=== PATIENT | female | born 1945 | race Hispanic/Latino ===

== ENCOUNTER 2019-07-10 18:07 | Emergency (ER) | payer MEDICARE ==
[2019-07-10 22:17] LABS: Basophils # (Auto) 0.1 K/mm3 (0.0-0.1); Basophils % (Auto) 0.6 % (0.0-1.8); Hemoglobin 14.5 gm/dl (10.1-14.3); Lymphocytes # (Auto) 0.6 K/mm3 (1.2-5.4); Lymphocytes % (Auto) 5.6 % (13.4-35.0); Mean Corpuscular HGB Conc 33 % (30-34); Mean Corpuscular Volume 91 fl (79-97); Monocytes # (Auto) 0.8 K/mm3 (0.0-0.8); Monocytes % (Auto) 7.7 % (0.0-7.3); Platelet Count 206 K/mm3 (140-440); Red Blood Count 4.82 M/mm3 (3.65-5.03); Red Cell Distribution Width 15.1 % (13.2-15.2)
[2019-07-10 22:40] LABS: Calcium 9.6 mg/dL (8.4-10.2)
--- NOTE | 2019-07-10 23:09 | Emergency Department Report ---
ED General Adult HPI - General Chief complaint: Fall Stated complaint: FELL Time Seen by Provider: 07/10/19 20:34 Source: patient, family Mode of arrival: Stretcher Limitations: Physical Limitation - History of Present Illness Initial comments: Patient presents to the emergency department with a chief complaint of fall 2 this morning. Patient states she is uses a wheelchair to get around her home and upon transferring from the wheelchair to the toilet she fell and denies hitting her head or any loss of consciousness. Patient complains of bilateral knee and upper arm pain. Patient has had a decreased appetite 3 days per her niece. Patient denies chest pain, shortness breath, abdominal pain. -: Sudden Location: upper extremity, lower extremity Severity scale (0 -10): 4 Quality: aching Consistency: constant Improves with: none Worsens with: none Associated Symptoms: denies other symptoms Treatments Prior to Arrival: none - Related Data Previous Rx's Medication Instructions Recorded Last Taken Type levoFLOXacin [Levaquin] 750 mg PO QDAY #5 tablet 07/11/19 Unknown Rx Allergies Allergy/AdvReac Type Severity Reaction Status Date / Time potassium chloride AdvReac Rash Verified 06/16/15 11:15 [From [facility]] ED Review of Systems ROS: Stated complaint: FELL Other details as noted in HPI Comment: All other systems reviewed and negative Constitutional: denies: chills, fever Eyes: denies: eye pain, eye discharge, vision change ENT: denies: ear pain, throat pain Respiratory: denies: cough, shortness of breath, wheezing Cardiovascular: denies: chest pain, palpitations Endocrine: no symptoms reported Gastrointestinal: denies: abdominal pain, nausea, diarrhea Genitourinary: denies: urgency, dysuria, discharge Musculoskeletal: denies: back pain, joint swelling, arthralgia Skin: denies: rash, lesions Neurological: denies: headache, weakness, paresthesias Psychiatric: denies: anxiety, depression Hematological/Lymphatic: denies: easy bleeding, easy bruising ED Past Medical Hx - Past Medical History Hx Diabetes: Yes Hx COPD: Yes - Surgical History Additional Surgical History: patrial hysterectomy - Social History Smoking Status: Never Smoker Substance Use Type: None - Medications Home Medications: Home Medications Medication Instructions Recorded Confirmed Last Taken Type levoFLOXacin [Levaquin] 750 mg PO QDAY #5 tablet 07/11/19 Unknown Rx ED Physical Exam - General Limitations: Physical Limitation General appearance: alert, in no apparent distress - Head Head exam: Present: atraumatic, normocephalic - Eye Eye exam: Present: normal appearance, PERRL, EOMI - ENT ENT exam: Present: mucous membranes moist - Neck Neck exam: Present: normal inspection - Respiratory Respiratory exam: Present: normal lung sounds bilaterally. Absent: respiratory distress - Cardiovascular Cardiovascular Exam: Present: regular rate, normal rhythm. Absent: systolic murmur, diastolic murmur, rubs, gallop - GI/Abdominal GI/Abdominal exam: Present: soft, normal bowel sounds. Absent: distended, tenderness - Extremities Exam Extremities exam: Present: normal inspection, other (tenderness to palpation of bilateral humerus is as well as tenderness to palpation of the patellas bilaterally) - Back Exam Back exam: Present: normal inspection - Neurological Exam Neurological exam: Present: alert, oriented X3, CN II-XII intact. Absent: motor sensory deficit - Psychiatric Psychiatric exam: Present: normal affect, normal mood - Skin Skin exam: Present: warm, dry, intact, normal color. Absent: rash ED Course Vital Signs 07/10/19 07/10/19 07/10/19 18:39 21:11 21:15 Temperature 100.0 F H Pulse Rate 86 87 83 Respiratory 22 19 21 Rate Blood Pressure 157/53 166/117 O2 Sat by Pulse 90 93 93 Oximetry 07/10/19 07/10/19 07/10/19 21:31 21:45 22:01 Temperature Pulse Rate 79 77 80 Respiratory 18 19 20 Rate Blood Pressure 152/83 152/83 159/61 O2 Sat by Pulse 91 90 93 Oximetry 07/10/19 07/10/19 07/10/19 22:09 22:57 23:00 Temperature Pulse Rate 86 82 Respiratory 18 15 18 Rate Blood Pressure 159/61 159/64 O2 Sat by Pulse 93 92 Oximetry 07/10/19 07/11/19 07/11/19 23:31 00:01 00:30 Temperature Pulse Rate 84 Respiratory 20 Rate Blood Pressure 156/58 177/65 177/65 O2 Sat by Pulse 89 91 Oximetry 07/11/19 07/11/19 07/11/19 01:01 01:31 02:01 Temperature Pulse Rate 81 81 75 Respiratory 22 20 20 Rate Blood Pressure 164/60 160/54 154/55 O2 Sat by Pulse 89 93 90 Oximetry ED Medical Decision Making - Lab Data Result diagrams: 07/10/19 21:49 07/10/19 21:49 Lab Results 07/10/19 07/10/19 07/10/19 Range/Units 21:49 21:49 Unknown WBC 10.3 (4.5-11.0) K/mm3 RBC 4.82 (3.65-5.03) M/mm3 Hgb 14.5 H (10.1-14.3) gm/dl Hct 44.0 H (30.3-42.9) % MCV 91 (79-97) fl MCH 30 (28-32) pg MCHC 33 (30-34) % RDW 15.1 (13.2-15.2) % Plt Count 206 (140-440) K/mm3 Lymph % (Auto) 5.6 L (13.4-35.0) % [place] % (Auto) 7.7 H (0.0-7.3) % Eos % (Auto) 0.0 (0.0-4.3) % Baso % (Auto) 0.6 (0.0-1.8) % Lymph # 0.6 L (1.2-5.4) K/mm3 [place] # 0.8 (0.0-0.8) K/mm3 Eos # 0.0 (0.0-0.4) K/mm3 Baso # 0.1 (0.0-0.1) K/mm3 Seg Neutrophils % 86.1 H (40.0-70.0) % Seg Neutrophils # 8.9 H (1.8-7.7) K/mm3 Sodium 133 L (137-145) mmol/L Potassium 5.1 H (3.6-5.0) mmol/L Chloride 93.9 L (98-107) mmol/L Carbon Dioxide 21 L (22-30) mmol/L Anion Gap 23 mmol/L BUN 30 H (7-17) mg/dL Creatinine 1.7 H (0.7-1.2) mg/dL Estimated GFR 29 ml/min BUN/Creatinine Ratio 18 % Glucose 423 H (65-100) mg/dL Calcium 9.6 (8.4-10.2) mg/dL Total Bilirubin 0.70 (0.1-1.2) mg/dL AST 19 (5-40) units/L ALT 13 (7-56) units/L Alkaline Phosphatase 86 (35-129) units/L Total Protein 7.9 (6.3-8.2) g/dL Albumin 3.0 L (3.9-5) g/dL Albumin/Globulin Ratio 0.6 % Urine Color Yellow (Yellow) Urine Turbidity Turbid (Clear) Urine pH 5.0 (5.0-7.0) Ur Specific [place] 1.015 (1.003-1.030) Urine Protein 100 mg/dl (Negative) mg/dL Urine Glucose (UA) >=500 (Negative) mg/dL Urine Ketones Tr (Negative) mg/dL Urine Blood Mod (Negative) Urine Nitrite Neg (Negative) Urine Bilirubin Neg (Negative) Urine Urobilinogen < 2.0 (<2.0) mg/dL Ur Leukocyte Esterase Mod (Negative) Urine WBC (Auto) > 182.0 H (0.0-6.0) /HPF Urine RBC (Auto) 126.0 (0.0-6.0) /HPF Urine Bacteria (Auto) 4+ (Negative) /HPF Urine WBC Clumps 3+ /HPF Urine Mucus 2+ /HPF - Radiology Data Radiology results: report reviewed - Medical Decision Making X-ray results reviewed Laboratory values and urinalysis reviewed Patient given by mouth Clau Discussed plan of care results with the patient and her niece Critical care attestation.: If time is entered above; I have spent that time in minutes in the direct care of this critically ill patient, excluding procedure time. ED Disposition Clinical Impression: UTI (urinary tract infection), Weakness Disposition: TO HOME OR SELFCARE Is pt being admited?: No Does the pt Need Aspirin: No Condition: Stable Instructions: Urinary Tract Infection in Women (ED), Weakness (ED) Additional Instructions: return if worse Referrals: PRIMARY CAREMD [Primary Care Provider] - 3-5 Days KAINNA STUART MD [Staff Physician] - 3-5 Days Time of Disposition: 02:07
--- NOTE | 2019-07-10 23:15 | XRay Report ---
AP PELVIS INDICATION / CLINICAL INFORMATION: Multiple falls today with pelvic pain. COMPARISON: None available. FINDINGS: BONES / JOINT(S): No acute fracture or subluxation. There is moderate lower lumbar spondylosis. SOFT TISSUES: No significant abnormality. ADDITIONAL FINDINGS: None. IMPRESSION: No acute abnormality. Signer Name: Farooq Yarbrough MD Signed: 07/10/2019 11:11 PM Workstation Name: [email or web address] [email or web address]
--- NOTE | 2019-07-10 23:16 | XRay Report ---
BILATERAL HUMERI 4 VIEWS INDICATION / CLINICAL INFORMATION: Multiple falls today with bilateral arm pain. COMPARISON: None available. FINDINGS: BONES / JOINT(S): No acute fracture or subluxation. There are moderate degenerative changes involving both glenohumeral joints. SOFT TISSUES: No significant abnormality. ADDITIONAL FINDINGS: None. IMPRESSION: No acute abnormality. Signer Name: Farooq Yarbrough MD Signed: 07/10/2019 11:12 PM Workstation Name: [id number]
--- NOTE | 2019-07-10 23:17 | XRay Report ---
BILATERAL KNEES 4 VIEWS INDICATION / CLINICAL INFORMATION: Multiple falls today with bilateral knee pain. COMPARISON: None available. FINDINGS: BONES / JOINT(S): There are advanced degenerative changes involving the left knee, most prominent inv olving the medial tibiofemoral joint. There are moderate degenerative changes involving the right kne e. I see no evidence of fracture, dislocation or joint effusion. SOFT TISSUES: No significant abnormality. ADDITIONAL FINDINGS: None. IMPRESSION: No acute abnormality. Signer Name: Farooq Yarbrough MD Signed: 07/10/2019 11:13 PM Workstation Name: [id number]
[2019-07-11 02:01] LABS: Bacteria,Urine 4+ /HPF (Negative); Bilirubin,Urine NEG (Negative); Blood,Urine MOD (Negative); Color,Urine Yellow (Yellow); Mucus,Urine 2+ /HPF; Urobilinogen,Urine < 2.0 mg/dL (<2.0)
[2019-07-11 02:03] LABS: WBC,Urine > 182.0 /HPF (0.0-6.0)
[2019-07-11 02:05] VITALS: BP 154/55
[2019-07-11] MEDS ORDERED: levoFLOXacin 750 MG TAB PO ONE (02:06)
== END 2019-07-11 07:10 | disposition home or self-care (01) ==
LOC: ED 18:07
DX: N39.0 Urinary tract infection, site not specified (principal); R53.1 Weakness; E11.9 Type 2 diabetes mellitus without complications; J44.9 Chronic obstructive pulmonary disease, unspecified; Z88.8 Allergy status to other drugs, medicaments and biological substances
CPT/HCPCS: 36415; 72170; 80053; 81001; 85025

== ENCOUNTER 2019-08-07 08:52 | Observation (INO) | payer MEDICARE ==
--- NOTE | 2019-08-07 09:25 | Cat Scan Report ---
CT HEAD WITHOUT CONTRAST INDICATION / CLINICAL INFORMATION: MAIN: CODE STROKE CALL [phone] . TECHNIQUE: All CT scans at this location are performed using CT dose reduction for ALARA by means of automated e xposure control. COMPARISON: None available. FINDINGS: Motion degrades the quality of the exam. HEMORRHAGE: No evidence of intracranial hemorrhage or extra-axial fluid collection. EXTRA-AXIAL SPACES: Cortical sulci, sylvian fissures and basilar cisterns have an unremarkable appear ance. VENTRICULAR SYSTEM: The ventricular system is of normal size and configuration. CEREBRAL PARENCHYMA: Bilateral benign basal ganglia calcifications. No other areas of abnormal brain parenchymal attenuation are identified. There is no indication of recent infarction. MIDLINE SHIFT OR HERNIATION: There is no mass effect. CEREBELLUM / BRAINSTEM: Brainstem and cerebellum have an unremarkable appearance. INTRACRANIAL VESSELS:No abnormalities are identified on this noncontrast head CT. ORBITS: visualized portions of the orbits have an unremarkable appearance. SOFT TISSUES of HEAD: No significant abnormality. CALVARIUM: Evaluation of bone windows reveals no abnormalities. PARANASAL SINUSES / MASTOID AIR CELLS: Paranasal sinuses are free from inflammatory mucosal disease. Mastoid air cells are normally pneumatized. ADDITIONAL FINDINGS: None. IMPRESSION: 1. No acute intracranial abnormality. Verbal report was given to SEAN May in the ED on 08/07/2019 at 9:18 AM EST. Signer Name: Travis Ludwig MD Signed: 08/07/2019 9:21 AM Workstation Name: [id number]
[2019-08-07] MEDS ORDERED: SODIUM CHLORIDE 0.9% 1000 ML 1,000 ML IV ONE (09:31)
--- NOTE | 2019-08-07 09:41 | Emergency Department Report ---
ED General Adult HPI - General Chief complaint: Nausea/Vomiting/Diarrhea Stated complaint: STROKE Source: patient, family, EMS Mode of arrival: Stretcher Limitations: Physical Limitation - History of Present Illness Initial comments: [facility] Date of Service: 08/07/2019 08:56:03 Impression: RO Acute Ischemic Stroke Comments: 74-year-old male that comes in one month ago, she had a UTI. She could not walk any more one month prior and started abx, and today she could not think clearly. Question CIDP - full spinal workup and also stroke workup. Mechanism of Stroke: Not Clear Metrics: [facility] Notification Time: 08/07/2019 08:55:28 Arrival Time: 08/07/2019 08:56:03 Stamp Time: 08/07/2019 08:56:03 Time First Login Attempt: 08/07/2019 09:02:02 Video Start Time: 08/07/2019 09:02:02 Symptoms: confusion NIHSS Start Assessment Time: 08/07/2019 09:09:53 Patient is not a candidate for tPA. Patient was not deemed candidate for tPA thrombolytics because of Last Well Known Above 4.5 Hours. Video End Time: 08/07/2019 09:40:09 Presentation suggestive of Large Vessel Occlusive Disease, Neurointerventional specialists to be consulted. Advanced imaging was reviewed. Radiologist was called back for review of advanced imaging on 08/07/2019 09:40:20 ED Physician notified of diagnostic impression and management plan on 08/07/2019 09:10:03 Our recommendations are outlined below. Recommendations: Activate Stroke Protocol Admission/Order Set Stroke/Telemetry Floor Neuro Checks Bedside Swallow Eval DVT Prophylaxis IV Fluids, Normal Saline Head of Bed Below 30 Degrees Euglycemia and Avoid Hyperthermia (PRN Acetaminophen) Antiplatelet Therapy Recommended Lipid Panel to Be Obtained, if Not Done in the Last Three Months Therapies: Physical Therapy, Occupational Therapy, Speech Therapy Assessment When Applicable Dysphaghia Screen: Swallow Evaluation, Bedside NPO Until Swallow Evaluation History of Present Illness: Patient is a 74 year old Male. Patient was brought by EMS for symptoms of confusion She had confusion, and had stroke about 10 years prior. she was having some jerking epsidoes and at home she would have spasms. Last seen normal was beyond 4.5 hours of presentation. There is no history of hemorrhagic complications or intracranial hemorrhage. There is no history of Recent Anticoagulants. There is no history of recent major surgery. There is no history of recent stroke. Examination: 1A: Level of Consciousness - Alert; keenly responsive + 0 1B: Ask Month and Age - Both Questions Right + 0 1C: Blink Eyes & Squeeze Hands - Performs Both Tasks + 0 2: Test Horizontal Extraocular Movements - Normal + 0 3: Test Visual Christianson - No Visual Loss + 0 4: Test Facial Palsy (Use Grimace if Obtunded) - Normal symmetry + 0 5A: Test Left Arm Motor Drift - Drift, but doesn't hit bed + 1 5B: Test Right Arm Motor Drift - Drift, but doesn't hit bed + 1 6A: Test Left Leg Motor Drift - No Movement + 4 6B: Test Right Leg Motor Drift - No Movement + 4 7: Test Limb Ataxia (FNF/Heel-Thapa) - No Ataxia + 0 8: Test Sensation - Normal; No sensory loss + 0 9: Test Language/Aphasia - Normal; No aphasia + 0 10: Test Dysarthria - Normal + 0 11: Test Extinction/Inattention - No abnormality + 0 NIHSS Score: 10 Patient was informed the Neurology Consult would happen via TeleHealth consult by way of interactive audio and video telecommunications and consented to receiving care in this manner. Due to the immediate potential for life-threatening deterioration due to underlying acute neurologic illness, I spent 35 minutes providing critical care. This time includes time for face to face visit via telemedicine, review of medical records, imaging studies and discussion of findings with providers, the patient and/or family. Dr Riley Parekh [facility] Case [id number] - Related Data Previous Rx's Medication Instructions Recorded Last Taken Type levoFLOXacin [Levaquin] 750 mg PO QDAY #5 tablet 07/11/19 Unknown Rx Allergies Allergy/AdvReac Type Severity Reaction Status Date / Time potassium chloride AdvReac Rash Verified 08/07/19 08:58 [From [facility]] ED Review of Systems ROS: Stated complaint: STROKE Other details as noted in HPI ED Past Medical Hx - Past Medical History Hx Diabetes: Yes Hx COPD: Yes - Surgical History Additional Surgical History: patrial hysterectomy - Social History Smoking Status: Never Smoker Substance Use Type: None - Medications Home Medications: Home Medications Medication Instructions Recorded Confirmed Last Taken Type levoFLOXacin [Levaquin] 750 mg PO QDAY #5 tablet 07/11/19 Unknown Rx ED Physical Exam - General Limitations: Physical Limitation Critical care attestation.: If time is entered above; I have spent that time in minutes in the direct care of this critically ill patient, excluding procedure time. ED Disposition Condition: Stable
[2019-08-07 09:44] LABS: Basophils % (Auto) 0.5 % (0.0-1.8); Eosinophils # (Auto) 0.2 K/mm3 (0.0-0.4); Eosinophils % (Auto) 4.4 % (0.0-4.3); Hematocrit 40.1 % (30.3-42.9); Hemoglobin 13.1 gm/dl (10.1-14.3); Lymphocytes # (Auto) 1.1 K/mm3 (1.2-5.4); Lymphocytes % (Auto) 25.5 % (13.4-35.0); Mean Corpuscular HGB Conc 33 % (30-34); Mean Corpuscular Volume 89 fl (79-97); Monocytes # (Auto) 0.3 K/mm3 (0.0-0.8); Monocytes % (Auto) 7.2 % (0.0-7.3); Platelet Count 168 K/mm3 (140-440); Red Blood Count 4.52 M/mm3 (3.65-5.03); Red Cell Distribution Width 15.4 % (13.2-15.2)
[2019-08-07 09:55] LABS: BUN/Creatinine Ratio 20; Blood Urea Nitrogen 16 mg/dL (7-17); Calcium 9.6 mg/dL (8.4-10.2); Hemolysis Index 7
[2019-08-07 09:59] LABS: INR 0.95 (0.87-1.13)
[2019-08-07 10:00] LABS: Partial Thromboplastin Time 25.8 Sec. (24.2-36.6)
[2019-08-07 10:12] LABS: Creatine Kinase MB 1.7 ng/mL (0.0-4.0)
[2019-08-07 10:17] LABS: Alanine Aminotransferase 14 units/L (7-56); Albumin 2.8 g/dL (3.9-5)
--- NOTE | 2019-08-07 10:18 | XRay Report ---
CHEST 1 VIEW INDICATION: ams. COMPARISON: None. FINDINGS: Support devices: None. Heart: Enlarged. Pulmonary vasculature: Normal. Lungs/Pleura: Mild right basal subsegmental atelectasis. Lungs are otherwise clear. Additional findings: None. IMPRESSION: 1. Cardiomegaly but no CHF. 2. Right lower lobe subsegmental atelectasis. Signer Name: Travis Ludwig MD Signed: 08/07/2019 10:14 AM Workstation Name: [id number]
[2019-08-07 10:24] LABS: Bilirubin,Direct < 0.2 mg/dL (0-0.2)
--- NOTE | 2019-08-07 10:27 | Emergency Department Report ---
ED Neuro Deficit HPI - General Chief Complaint: Nausea/Vomiting/Diarrhea Stated Complaint: STROKE Time Seen by Provider: 08/07/19 09:29 Source: patient, family, EMS Mode of arrival: Stretcher Limitations: Physical Limitation - Related Data Home Medications: Previous Rx's Medication Instructions Recorded Last Taken Type levoFLOXacin [Levaquin] 750 mg PO QDAY #5 tablet 07/11/19 Unknown Rx Allergies/Adverse Reactions: Allergies Allergy/AdvReac Type Severity Reaction Status Date / Time potassium chloride AdvReac Rash Verified 08/07/19 08:58 [From [facility]] ED Review of Systems ROS: Stated complaint: STROKE Other details as noted in HPI ED Past Medical Hx - Past Medical History Hx Diabetes: Yes Hx COPD: Yes - Surgical History Additional Surgical History: patrial hysterectomy - Social History Smoking Status: Never Smoker Substance Use Type: None - Medications Home Medications: Home Medications Medication Instructions Recorded Confirmed Last Taken Type levoFLOXacin [Levaquin] 750 mg PO QDAY #5 tablet 07/11/19 Unknown Rx ED Neuro Physical Exam - General Limitations: Physical Limitation ED Course Vital Signs 08/07/19 09:00 Temperature 97.8 F Pulse Rate 63 Respiratory 14 Rate Blood Pressure 146/78 [Left] O2 Sat by Pulse 98 Oximetry - Lab Data Result diagrams: 08/07/19 09:10 08/07/19 09:10 Lab Results 08/07/19 08/07/19 08/07/19 Range/Units 09:10 09:10 09:10 WBC 4.4 L (4.5-11.0) K/mm3 RBC 4.52 (3.65-5.03) M/mm3 Hgb 13.1 (10.1-14.3) gm/dl Hct 40.1 (30.3-42.9) % MCV 89 (79-97) fl MCH 29 (28-32) pg MCHC 33 (30-34) % RDW 15.4 H (13.2-15.2) % Plt Count 168 (140-440) K/mm3 Lymph % (Auto) 25.5 (13.4-35.0) % [place] % (Auto) 7.2 (0.0-7.3) % Eos % (Auto) 4.4 H (0.0-4.3) % Baso % (Auto) 0.5 (0.0-1.8) % Lymph # 1.1 L (1.2-5.4) K/mm3 [place] # 0.3 (0.0-0.8) K/mm3 Eos # 0.2 (0.0-0.4) K/mm3 Baso # 0.0 (0.0-0.1) K/mm3 Seg Neutrophils % 62.4 (40.0-70.0) % Seg Neutrophils # 2.8 (1.8-7.7) K/mm3 PT 12.8 (12.2-14.9) Sec. INR 0.95 (0.87-1.13) APTT 25.8 (24.2-36.6) Sec. Thrombin Time (15.1-19.6) Sec. Sodium 139 (137-145) mmol/L Potassium 4.1 (3.6-5.0) mmol/L Chloride 100.4 (98-107) mmol/L Carbon Dioxide 25 (22-30) mmol/L Anion Gap 18 mmol/L BUN 16 (7-17) mg/dL Creatinine 0.8 (0.7-1.2) mg/dL Estimated GFR > 60 ml/min BUN/Creatinine Ratio 20 % Glucose 203 H (65-100) mg/dL POC Glucose (70-105) Lactic Acid (0.7-2.0) mmol/L Calcium 9.6 (8.4-10.2) mg/dL Total Bilirubin (0.1-1.2) mg/dL Direct Bilirubin (0-0.2) mg/dL AST (5-40) units/L ALT (7-56) units/L Alkaline Phosphatase (35-129) units/L Total Creatine Kinase (30-135) units/L CK-MB (CK-2) (0.0-4.0) ng/mL CK-MB (CK-2) Rel Index (0-4) Troponin T 0.027 (0.00-0.029) ng/mL Total Protein (6.3-8.2) g/dL Albumin (3.9-5) g/dL Albumin/Globulin Ratio % 08/07/19 08/07/19 08/07/19 Range/Units 09:10 09:36 09:47 WBC (4.5-11.0) K/mm3 RBC (3.65-5.03) M/mm3 Hgb (10.1-14.3) gm/dl Hct (30.3-42.9) % MCV (79-97) fl MCH (28-32) pg MCHC (30-34) % RDW (13.2-15.2) % Plt Count (140-440) K/mm3 Lymph % (Auto) (13.4-35.0) % [place] % (Auto) (0.0-7.3) % Eos % (Auto) (0.0-4.3) % Baso % (Auto) (0.0-1.8) % Lymph # (1.2-5.4) K/mm3 [place] # (0.0-0.8) K/mm3 Eos # (0.0-0.4) K/mm3 Baso # (0.0-0.1) K/mm3 Seg Neutrophils % (40.0-70.0) % Seg Neutrophils # (1.8-7.7) K/mm3 PT (12.2-14.9) Sec. INR (0.87-1.13) APTT (24.2-36.6) Sec. Thrombin Time 16.6 (15.1-19.6) Sec. Sodium (137-145) mmol/L Potassium (3.6-5.0) mmol/L Chloride (98-107) mmol/L Carbon Dioxide (22-30) mmol/L Anion Gap mmol/L BUN (7-17) mg/dL Creatinine (0.7-1.2) mg/dL Estimated GFR ml/min BUN/Creatinine Ratio % Glucose (65-100) mg/dL POC Glucose 182 H (70-105) Lactic Acid (0.7-2.0) mmol/L Calcium (8.4-10.2) mg/dL Total Bilirubin 0.50 (0.1-1.2) mg/dL Direct Bilirubin < 0.2 (0-0.2) mg/dL AST 18 (5-40) units/L ALT 14 (7-56) units/L Alkaline Phosphatase 68 (35-129) units/L Total Creatine Kinase (30-135) units/L CK-MB (CK-2) (0.0-4.0) ng/mL CK-MB (CK-2) Rel Index (0-4) Troponin T (0.00-0.029) ng/mL Total Protein 6.9 (6.3-8.2) g/dL Albumin 2.8 L (3.9-5) g/dL Albumin/Globulin Ratio 0.7 % 08/07/19 08/07/19 Range/Units 09:47 09:47 WBC (4.5-11.0) K/mm3 RBC (3.65-5.03) M/mm3 Hgb (10.1-14.3) gm/dl Hct (30.3-42.9) % MCV (79-97) fl MCH (28-32) pg MCHC (30-34) % RDW (13.2-15.2) % Plt Count (140-440) K/mm3 Lymph % (Auto) (13.4-35.0) % [place] % (Auto) (0.0-7.3) % Eos % (Auto) (0.0-4.3) % Baso % (Auto) (0.0-1.8) % Lymph # (1.2-5.4) K/mm3 [place] # (0.0-0.8) K/mm3 Eos # (0.0-0.4) K/mm3 Baso # (0.0-0.1) K/mm3 Seg Neutrophils % (40.0-70.0) % Seg Neutrophils # (1.8-7.7) K/mm3 PT (12.2-14.9) Sec. INR (0.87-1.13) APTT (24.2-36.6) Sec. Thrombin Time (15.1-19.6) Sec. Sodium (137-145) mmol/L Potassium (3.6-5.0) mmol/L Chloride (98-107) mmol/L Carbon Dioxide (22-30) mmol/L Anion Gap mmol/L BUN (7-17) mg/dL Creatinine (0.7-1.2) mg/dL Estimated GFR ml/min BUN/Creatinine Ratio % Glucose (65-100) mg/dL POC Glucose (70-105) Lactic Acid 1.20 (0.7-2.0) mmol/L Calcium (8.4-10.2) mg/dL Total Bilirubin (0.1-1.2) mg/dL Direct Bilirubin (0-0.2) mg/dL AST (5-40) units/L ALT (7-56) units/L Alkaline Phosphatase (35-129) units/L Total Creatine Kinase 23 L (30-135) units/L CK-MB (CK-2) 1.7 (0.0-4.0) ng/mL CK-MB (CK-2) Rel Index 7.3 H (0-4) Troponin T (0.00-0.029) ng/mL Total Protein (6.3-8.2) g/dL Albumin (3.9-5) g/dL Albumin/Globulin Ratio % Critical care attestation.: If time is entered above; I have spent that time in minutes in the direct care of this critically ill patient, excluding procedure time. ED Disposition Condition: Stable
--- NOTE | 2019-08-07 10:28 | Emergency Department Report ---
ED Neuro Deficit HPI - General Chief Complaint: Nausea/Vomiting/Diarrhea Stated Complaint: STROKE Time Seen by Provider: 08/07/19 09:29 Source: patient, family, EMS Mode of arrival: Stretcher Limitations: Physical Limitation - History of Present Illness Initial Comments: Patient is a 74-year-old female who comes to the ER via EMS for altered mental status. Patient is an ill-appearing obese bedridden female. Patient lives with her niece who saw her last night at midnight and she was her baseline self. However at 730 this morning the niece found her confused. The patient was seen in the ER for weakness and fall on 114. Since that time the patient has been bedridden. Patient's blood sugar was 141 per EMS. On arrival to the ER the patient can state her name age and year. She has generalized weakness. She has not been able to walk since last month. There is no focal deficit appreciable of her extremities. She does have a mild ptosis of her right face and tongue deviation to the right. However, the family endorses a stroke in 2009. Patient denies any chest pain, shortness of breath, fever, chills. Patient denies abdominal pain. She denies nausea vomiting or diarrhea. Vital signs noted patient is not tachycardic or hypoxic. She has euthermic on arrival. CT of the head was negative today prior to exam by provider. Radiology has called this read. Tele-neurology assessed patient on arrival to the ER. Their recommendations are in the EMR which include TIA/CVA work-up. CT angios of head neck is been ordered. Staffed with Dr. Kevin Macias. - Related Data Allergies/Adverse Reactions: Allergies Allergy/AdvReac Type Severity Reaction Status Date / Time potassium chloride AdvReac Rash Verified 08/07/19 08:58 [From [facility]] ED Review of Systems ROS: Stated complaint: STROKE Other details as noted in HPI Comment: All other systems reviewed and negative ED Past Medical Hx - Past Medical History Hx Hypertension: Yes Hx CVA: Yes (2009) Hx Heart Attack/AMI: No Hx Congestive Heart Failure: No Hx Diabetes: Yes Hx Deep Vein Thrombosis: No Hx Pulmonary Embolism: No Hx GERD: No Hx Liver Disease: No Hx Renal Disease: No Hx of Cancer: No Hx Sickle Cell Disease: No Hx Arthritis: No Hx Headaches / Migraines: No Hx Seizures: No Hx Kidney Stones: No Hx Psychiatric Treatment: No Hx Asthma: No Hx COPD: Yes Hx Tuberculosis: No Hx Dementia: No Hx HIV: No - Surgical History Past Surgical History?: Yes Additional Surgical History: patrial hysterectomy - Family History Family history: no significant - Social History Smoking Status: Never Smoker Substance Use Type: None ED Neuro Physical Exam - General Limitations: Physical Limitation General appearance: alert Suspected Stroke: Yes - Head Head exam: Present: atraumatic, normocephalic - Eye Eye exam: Present: PERRL, EOMI - ENT ENT exam: Present: mucous membranes moist - Neck Neck exam: Present: normal inspection - Respiratory Respiratory exam: Present: normal lung sounds bilaterally. Absent: respiratory distress - Cardiovascular Cardiovascular Exam: Present: regular rate, normal rhythm. Absent: systolic murmur, diastolic murmur, rubs, gallop - GI/Abdominal GI/Abdominal exam: Present: soft, normal bowel sounds - Extremities Exam Extremities exam: Present: normal inspection, pedal edema - Back Exam Back exam: Present: normal inspection - Neurological Exam Neurological exam: Present: alert - NIHSS Assessment Interval: Baseline 1a. Level of Consciousness: arousable/minor stimuli 1b. LOC Questions: answers both correctly 1c. LOC Commands: performs tasks correctly 2. Best Gaze: normal 3. Visual: no visual loss 4. Facial Palsy: minor paralysis 5b. Motor Arm Right: some gravity effort 5a. Motor Arm Left: some gravity effort 6a. Motor Leg Left: no movement 6b. Motor Leg Right: no movement 7. Limb Ataxia: absent 8. Sensory: normal 9. Best Language: no aphasia 10. Dysarthria: normal 11. Extinction/Inattention: no abnormality Total Score: 14 Stroke Severity: Moderate Stroke - Psychiatric Psychiatric exam: Present: normal affect, normal mood - Skin Skin exam: Present: warm, dry, intact, normal color. Absent: rash ED Course Vital Signs 08/07/19 08/07/19 08/07/19 09:00 09:12 09:16 Temperature 97.8 F Pulse Rate 63 77 72 Respiratory 14 11 L 13 Rate Blood Pressure Blood Pressure 146/78 [Left] O2 Sat by Pulse 98 97 Oximetry 08/07/19 08/07/19 08/07/19 09:30 09:46 10:00 Temperature Pulse Rate 74 68 65 Respiratory 18 10 L 12 Rate Blood Pressure 146/78 118/58 131/65 Blood Pressure [Left] O2 Sat by Pulse 98 98 98 Oximetry 08/07/19 10:15 Temperature Pulse Rate 69 Respiratory 10 L Rate Blood Pressure Blood Pressure [Left] O2 Sat by Pulse 97 Oximetry - Reevaluation(s) Reevaluation #1: 08/07/19 10:58 home meds lopressor glipizide lortab - Lab Data Result diagrams: 08/07/19 09:10 08/07/19 09:10 Lab Results 08/07/19 08/07/19 08/07/19 Range/Units 09:10 09:10 09:10 WBC 4.4 L (4.5-11.0) K/mm3 RBC 4.52 (3.65-5.03) M/mm3 Hgb 13.1 (10.1-14.3) gm/dl Hct 40.1 (30.3-42.9) % MCV 89 (79-97) fl MCH 29 (28-32) pg MCHC 33 (30-34) % RDW 15.4 H (13.2-15.2) % Plt Count 168 (140-440) K/mm3 Lymph % (Auto) 25.5 (13.4-35.0) % Perry % (Auto) 7.2 (0.0-7.3) % Eos % (Auto) 4.4 H (0.0-4.3) % Baso % (Auto) 0.5 (0.0-1.8) % Lymph # 1.1 L (1.2-5.4) K/mm3 Perry # 0.3 (0.0-0.8) K/mm3 Eos # 0.2 (0.0-0.4) K/mm3 Baso # 0.0 (0.0-0.1) K/mm3 Seg Neutrophils % 62.4 (40.0-70.0) % Seg Neutrophils # 2.8 (1.8-7.7) K/mm3 PT 12.8 (12.2-14.9) Sec. INR 0.95 (0.87-1.13) APTT 25.8 (24.2-36.6) Sec. Thrombin Time (15.1-19.6) Sec. Sodium 139 (137-145) mmol/L Potassium 4.1 (3.6-5.0) mmol/L Chloride 100.4 (98-107) mmol/L Carbon Dioxide 25 (22-30) mmol/L Anion Gap 18 mmol/L BUN 16 (7-17) mg/dL Creatinine 0.8 (0.7-1.2) mg/dL Estimated GFR > 60 ml/min BUN/Creatinine Ratio 20 % Glucose 203 H (65-100) mg/dL POC Glucose (70-105) Lactic Acid (0.7-2.0) mmol/L Calcium 9.6 (8.4-10.2) mg/dL Total Bilirubin (0.1-1.2) mg/dL Direct Bilirubin (0-0.2) mg/dL AST (5-40) units/L ALT (7-56) units/L Alkaline Phosphatase (35-129) units/L Total Creatine Kinase (30-135) units/L CK-MB (CK-2) (0.0-4.0) ng/mL CK-MB (CK-2) Rel Index (0-4) Troponin T 0.027 (0.00-0.029) ng/mL Total Protein (6.3-8.2) g/dL Albumin (3.9-5) g/dL Albumin/Globulin Ratio % 08/07/19 08/07/19 08/07/19 Range/Units 09:10 09:36 09:47 WBC (4.5-11.0) K/mm3 RBC (3.65-5.03) M/mm3 Hgb (10.1-14.3) gm/dl Hct (30.3-42.9) % MCV (79-97) fl MCH (28-32) pg MCHC (30-34) % RDW (13.2-15.2) % Plt Count (140-440) K/mm3 Lymph % (Auto) (13.4-35.0) % Perry % (Auto) (0.0-7.3) % Eos % (Auto) (0.0-4.3) % Baso % (Auto) (0.0-1.8) % Lymph # (1.2-5.4) K/mm3 Perry # (0.0-0.8) K/mm3 Eos # (0.0-0.4) K/mm3 Baso # (0.0-0.1) K/mm3 Seg Neutrophils % (40.0-70.0) % Seg Neutrophils # (1.8-7.7) K/mm3 PT (12.2-14.9) Sec. INR (0.87-1.13) APTT (24.2-36.6) Sec. Thrombin Time 16.6 (15.1-19.6) Sec. Sodium (137-145) mmol/L Potassium (3.6-5.0) mmol/L Chloride (98-107) mmol/L Carbon Dioxide (22-30) mmol/L Anion Gap mmol/L BUN (7-17) mg/dL Creatinine (0.7-1.2) mg/dL Estimated GFR ml/min BUN/Creatinine Ratio % Glucose (65-100) mg/dL POC Glucose 182 H (70-105) Lactic Acid (0.7-2.0) mmol/L Calcium (8.4-10.2) mg/dL Total Bilirubin 0.50 (0.1-1.2) mg/dL Direct Bilirubin < 0.2 (0-0.2) mg/dL AST 18 (5-40) units/L ALT 14 (7-56) units/L Alkaline Phosphatase 68 (35-129) units/L Total Creatine Kinase (30-135) units/L CK-MB (CK-2) (0.0-4.0) ng/mL CK-MB (CK-2) Rel Index (0-4) Troponin T (0.00-0.029) ng/mL Total Protein 6.9 (6.3-8.2) g/dL Albumin 2.8 L (3.9-5) g/dL Albumin/Globulin Ratio 0.7 % 08/07/19 08/07/19 Range/Units 09:47 09:47 WBC (4.5-11.0) K/mm3 RBC (3.65-5.03) M/mm3 Hgb (10.1-14.3) gm/dl Hct (30.3-42.9) % MCV (79-97) fl MCH (28-32) pg MCHC (30-34) % RDW (13.2-15.2) % Plt Count (140-440) K/mm3 Lymph % (Auto) (13.4-35.0) % Perry % (Auto) (0.0-7.3) % Eos % (Auto) (0.0-4.3) % Baso % (Auto) (0.0-1.8) % Lymph # (1.2-5.4) K/mm3 Perry # (0.0-0.8) K/mm3 Eos # (0.0-0.4) K/mm3 Baso # (0.0-0.1) K/mm3 Seg Neutrophils % (40.0-70.0) % Seg Neutrophils # (1.8-7.7) K/mm3 PT (12.2-14.9) Sec. INR (0.87-1.13) APTT (24.2-36.6) Sec. Thrombin Time (15.1-19.6) Sec. Sodium (137-145) mmol/L Potassium (3.6-5.0) mmol/L Chloride (98-107) mmol/L Carbon Dioxide (22-30) mmol/L Anion Gap mmol/L BUN (7-17) mg/dL Creatinine (0.7-1.2) mg/dL Estimated GFR ml/min BUN/Creatinine Ratio % Glucose (65-100) mg/dL POC Glucose (70-105) Lactic Acid 1.20 (0.7-2.0) mmol/L Calcium (8.4-10.2) mg/dL Total Bilirubin (0.1-1.2) mg/dL Direct Bilirubin (0-0.2) mg/dL AST (5-40) units/L ALT (7-56) units/L Alkaline Phosphatase (35-129) units/L Total Creatine Kinase 23 L (30-135) units/L CK-MB (CK-2) 1.7 (0.0-4.0) ng/mL CK-MB (CK-2) Rel Index 7.3 H (0-4) Troponin T (0.00-0.029) ng/mL Total Protein (6.3-8.2) g/dL Albumin (3.9-5) g/dL Albumin/Globulin Ratio % - EKG Data -: EKG Interpreted by [place] EKG shows normal: sinus rhythm Rate: normal Interpretation: other (bifacicular block) - Radiology Data Radiology results: report reviewed, image reviewed - Medical Decision Making Labs 08/07/19 08/07/19 08/07/19 09:10 09:10 09:10 WBC 4.4 L RBC 4.52 Hgb 13.1 Hct 40.1 MCV 89 MCH 29 MCHC 33 RDW 15.4 H Plt Count 168 Lymph % (Auto) 25.5 Perry % (Auto) 7.2 Eos % (Auto) 4.4 H Baso % (Auto) 0.5 Lymph # 1.1 L Perry # 0.3 Eos # 0.2 Baso # 0.0 Seg Neutrophils % 62.4 Seg Neutrophils # 2.8 PT 12.8 INR 0.95 APTT 25.8 Thrombin Time Sodium 139 Potassium 4.1 Chloride 100.4 Carbon Dioxide 25 Anion Gap 18 BUN 16 Creatinine 0.8 Estimated GFR > 60 BUN/Creatinine Ratio 20 Glucose 203 H POC Glucose Lactic Acid Calcium 9.6 Total Bilirubin Direct Bilirubin AST ALT Alkaline Phosphatase Total Creatine Kinase CK-MB (CK-2) CK-MB (CK-2) Rel Index Troponin T 0.027 Total Protein Albumin Albumin/Globulin Ratio 08/07/19 08/07/19 08/07/19 09:10 09:36 09:47 WBC RBC Hgb Hct MCV MCH MCHC RDW Plt Count Lymph % (Auto) Perry % (Auto) Eos % (Auto) Baso % (Auto) Lymph # Perry # Eos # Baso # Seg Neutrophils % Seg Neutrophils # PT INR APTT Thrombin Time 16.6 Sodium Potassium Chloride Carbon Dioxide Anion Gap BUN Creatinine Estimated GFR BUN/Creatinine Ratio Glucose POC Glucose 182 H Lactic Acid Calcium Total Bilirubin 0.50 Direct Bilirubin < 0.2 AST 18 ALT 14 Alkaline Phosphatase 68 Total Creatine Kinase CK-MB (CK-2) CK-MB (CK-2) Rel Index Troponin T Total Protein 6.9 Albumin 2.8 L Albumin/Globulin Ratio 0.7 08/07/19 08/07/19 09:47 09:47 WBC RBC Hgb Hct MCV MCH MCHC RDW Plt Count Lymph % (Auto) Perry % (Auto) Eos % (Auto) Baso % (Auto) Lymph # Perry # Eos # Baso # Seg Neutrophils % Seg Neutrophils # PT INR APTT Thrombin Time Sodium Potassium Chloride Carbon Dioxide Anion Gap BUN Creatinine Estimated GFR BUN/Creatinine Ratio Glucose POC Glucose Lactic Acid 1.20 Calcium Total Bilirubin Direct Bilirubin AST ALT Alkaline Phosphatase Total Creatine Kinase 23 L CK-MB (CK-2) 1.7 CK-MB (CK-2) Rel Index 7.3 H Troponin T Total Protein Albumin Albumin/Globulin Ratio Vital Signs 08/07/19 09:00 Temperature 97.8 F Pulse Rate 63 Respiratory 14 Rate Blood Pressure 146/78 [Left] O2 Sat by Pulse 98 Oximetry EMR reviewed and patient was noted to have a UTI on discharge from the hospital in June. She reports finishing a course of p.o. Levaquin. WBCs noted to have decreased. Blood cultures and urine cultures have been sent. Lactate is normal. Labs noted. CT of head noted. Abnormal EKG noted. We have no comparison but patient has a bifascicular block. She is in sinus rhythm rate is 65 she is on metoprolol at home. Would likely need a cardiology consult. Troponin is negative. CK noted to be mildly elevated. Patient has not had no [facility] Blood sugar is normal. Patient is on glipizide at home. INT has been inserted. Crow catheter has been inserted for strict I's and O's given the patient's immobility and getting on and off the bedpan or to the restroom. Patient will be admitted to [facility] for TIA/CVA work-up per neuro recommendations. [address] Mendoza will admit to telemetry will need social service eval for home care etc. - Differential Diagnosis ro cva/tia; acs; pe; sepsis - Core Measures AMI Core Measures Followed: No Measure Exclusions: not indicated - Thrombolytic Inclusion/Exclusion Thrombolytic Exclusion Criteria: Symptom Onset > 3 Hours Thrombolytic Inclusion Criteria: NIH Stroke Scale Deficit, Negative CT Scan for ICH, Age 18 or Older, Glucose of 50-400mg/dl Critical care attestation.: If time is entered above; I have spent that time in minutes in the direct care of this critically ill patient, excluding procedure time. ED Disposition Clinical Impression: Altered mental status Disposition: OP ADMIT IP TO THIS HOSP Is pt being admited?: Yes Does the pt Need Aspirin: No Condition: Stable Referrals: PRIMARY CARE, [Primary Care Provider] - 3-5 Days Time of Disposition: 10:49
[2019-08-07 11:52] LABS: Bacteria,Urine 2+ /HPF (Negative); Bilirubin,Urine NEG (Negative); Blood,Urine MOD (Negative); Color,Urine Yellow (Yellow); Mucus,Urine FEW /HPF; Protein,Urine <15 mg/dL mg/dL (Negative); Urobilinogen,Urine < 2.0 mg/dL (<2.0)
--- NOTE | 2019-08-07 13:30 | Cat Scan Report ---
CTA HEAD AND NECK WITH CONTRAST HISTORY: Acute altered mental status. COMPARISON: None. TECHNIQUE: All CT scans at this location are performed using CT dose reduction for ALARA by means of automated exposure control.. 3-D/MIP reformats postprocessed. Percentage stenosis is determined by d irect quantitative measurements of diseased internal carotid artery diameter compared with normal dis brunilda internal carotid artery reference segments or by criteria similar to NASCET where applicable. CONTRAST: 100 ml of Isovue 370 FINDINGS: CTA HEAD: Intracranial vertebral arteries: No significant abnormality. Basilar artery: No significant abnormality. Posterior cerebral arteries: No significant abnormality. Intracranial internal carotid arteries: There is mild atherosclerotic calcification in the carotid si phons bilaterally without significant stenosis or occlusion. Anterior cerebral arteries: No significant abnormality. Middle cerebral arteries: No significant abnormality. Dural venous sinuses:Not optimally opacified. No significant abnormality. CTA NECK: Aortic arch: There is mild atherosclerotic calcification without significant stenosis. Cervical vertebral arteries: No significant abnormality. Common carotid arteries: No significant abnormality. Cervical internal carotid arteries: Mild atherosclerotic ossification is present in both carotid bulb s without any significant stenosis. Additional findings: There is a 2.2 cm right thyroid nodule. IMPRESSION: 1. No focal significant stenosis or large vessel occlusion throughout the cervical or intracranial ar teries. 2. Incidental thyroid nodule measuring 2.2 cm located in the right thyroid lobe. See below for follow -up recommendation. Nonpalpable nodules detected on US or other anatomic imaging studies are termed incidentally discover ed nodules or incidentalomas. Nonpalpable nodules have the same risk of malignancy as palpable nodule s with the same size. Generally, only nodules >1 cm should be evaluated, since they have a greater po tential to be clinically significant cancers. (SREE, 2009). Follow up for incidental thyroid nodules <1 cm is not recommended. In patients <35 years with an incidental thyroid nodule detected on CT, MRI, or extrathyroidal ultras ound, dedicated thyroid ultrasound is recommended if the nodule is 1 cm, has no suspicious imaging fe atures, and if the patient has normal life expectancy. In patients 35 years with an incidental thyroid nodule detected on CT, MRI, or extrathyroidal ultraso und, dedicated thyroid ultrasound is recommended if the nodule is 1.5 cm, has no suspicious imaging f eatures, and if the patient has normal life expectancy. Signer Name: Chandu Garland MD Signed: 08/07/2019 1:25 PM Workstation Name: [id number]
--- NOTE | 2019-08-07 23:45 | History and Physical Report ---
History of Present Illness Date of examination: 08/07/19 Date of admission: 08/07/19 11:21 Chief complaint: Altered sensorium since a.m. History of present illness: 74-year-old female who comes to the ER via EMS for altered mental status. Patient is an ill-appearing obese bedridden female. Patient lives with her niece who saw her last night at midnight and she was her baseline self. However at 730 this morning the niece found her confused. The patient was seen in the ER for weakness and fall recently. Since that time the patient has been bedridden. Patient's blood sugar was 141 per EMS. On arrival to the ER the patient can state her name age and year. She has generalized weakness. She has not been able to walk since last month. There is no focal deficit appreciable of her extremities. She does have a mild ptosis of her right face and tongue deviation to the right. However, the family endorses a stroke in 2009. Patient denies any chest pain, shortness of breath, fever, chills. Patient denies abdominal pain. She denies nausea vomiting or diarrhea. Vital signs noted patient is not tachycardic or hypoxic. She has euthermic on arrival. Tele-neurology assessed patient on arrival to the ER. Their recommendations are in the EMR which include TIA/CVA work-up. CT angios of head neck is been ordered. Past Medical History Hypertension: Yes CVA: Yes (2009) Diabetes: Yes Surgical History Past Surgical History?: Yes Additional Surgical History: patrial hysterectomy Family History Family history: no significant Social History Smoking Status: Never Smoker Substance Use Type: None Review of Systems ROS: Altered sensorium Other details as noted in HPI Comment: All other systems reviewed and negative Medications and Allergies Allergies Allergy/AdvReac Type Severity Reaction Status Date / Time potassium chloride AdvReac Rash Verified 08/07/19 08:58 [From K-Dur] Home Medications Medication Instructions Recorded Confirmed Last Taken Type HYDROcodone/APAP 7.5-325 [[place] 1 each PO BID PRN 08/07/19 08/07/19 Unknown History 7.5/325] Metoprolol [Lopressor TAB] 50 mg PO QDAY 08/07/19 08/07/19 Unknown History glipiZIDE XL [Glucotrol Xl] 10 mg PO BID 08/07/19 08/07/19 Unknown History glipiZIDE [Glucotrol] 10 mg PO BID 08/07/19 08/07/19 Unknown History Exam - Constitutional Vitals: Temp Pulse Resp BP Pulse Ox 98.8 F 65 16 132/56 97 08/07/19 20:10 08/07/19 20:52 08/07/19 20:10 08/07/19 20:10 08/07/19 22:19 General appearance: Present: no acute distress, well-nourished - EENT Eyes: Present: PERRL ENT: hearing intact, clear oral mucosa - Neck Neck: Present: supple, normal ROM - Respiratory Respiratory effort: normal Respiratory: bilateral: CTA - Cardiovascular Heart rate: 78 Heart Sounds: Present: S1 & S2. Absent: rub, click - Extremities Extremities: no ischemia, pulses intact, pulses symmetrical, No edema Extremity abnormal: other (Erythema on both legs anteriorly below the knee joint) Peripheral Pulses: within normal limits - Abdominal General gastrointestinal: Present: soft, non-tender, non-distended, normal bowel sounds Female genitourinary: Present: normal - Rectal Rectal Exam: deferred - Integumentary Integumentary: Present: clear, warm, dry - Musculoskeletal Musculoskeletal: generalized weakness - Psychiatric Psychiatric: appropriate mood/affect, intact judgment & insight, other (Talking appropriately, moving all 4 extremities) - Neurologic Neurologic: CNII-XII intact, moves all extremities Results - Labs CBC & Chem 7: 08/07/19 09:10 08/07/19 09:10 Labs: Laboratory Last Values WBC 4.4 K/mm3 (4.5-11.0) L 08/07/19 09:10 RBC 4.52 M/mm3 (3.65-5.03) 08/07/19 09:10 Hgb 13.1 gm/dl (10.1-14.3) 08/07/19 09:10 Hct 40.1 % (30.3-42.9) 08/07/19 09:10 MCV 89 fl (79-97) 08/07/19 09:10 MCH 29 pg (28-32) 08/07/19 09:10 MCHC 33 % (30-34) 08/07/19 09:10 RDW 15.4 % (13.2-15.2) H 08/07/19 09:10 Plt Count 168 K/mm3 (140-440) 08/07/19 09:10 Lymph % (Auto) 25.5 % (13.4-35.0) 08/07/19 09:10 [place] % (Auto) 7.2 % (0.0-7.3) 08/07/19 09:10 Eos % (Auto) 4.4 % (0.0-4.3) H 08/07/19 09:10 Baso % (Auto) 0.5 % (0.0-1.8) 08/07/19 09:10 Lymph # 1.1 K/mm3 (1.2-5.4) L 08/07/19 09:10 [place] # 0.3 K/mm3 (0.0-0.8) 08/07/19 09:10 Eos # 0.2 K/mm3 (0.0-0.4) 08/07/19 09:10 Baso # 0.0 K/mm3 (0.0-0.1) 08/07/19 09:10 Seg Neutrophils % 62.4 % (40.0-70.0) 08/07/19 09:10 Seg Neutrophils # 2.8 K/mm3 (1.8-7.7) 08/07/19 09:10 PT 12.8 Sec. (12.2-14.9) 08/07/19 09:10 INR 0.95 (0.87-1.13) 08/07/19 09:10 APTT 25.8 Sec. (24.2-36.6) 08/07/19 09:10 Thrombin Time 16.6 Sec. (15.1-19.6) 08/07/19 09:10 Sodium 139 mmol/L (137-145) 08/07/19 09:10 Potassium 4.1 mmol/L (3.6-5.0) 08/07/19 09:10 Chloride 100.4 mmol/L (98-107) 08/07/19 09:10 Carbon Dioxide 25 mmol/L (22-30) 08/07/19 09:10 Anion Gap 18 mmol/L 08/07/19 09:10 BUN 16 mg/dL (7-17) 08/07/19 09:10 Creatinine 0.8 mg/dL (0.7-1.2) 08/07/19 09:10 Estimated GFR > 60 ml/min 08/07/19 09:10 BUN/Creatinine Ratio 20 % 08/07/19 09:10 Glucose 203 mg/dL (65-100) H 08/07/19 09:10 POC Glucose 169 (70-105) H 08/07/19 21:06 Lactic Acid 1.20 mmol/L (0.7-2.0) 08/07/19 09:47 Calcium 9.6 mg/dL (8.4-10.2) 08/07/19 09:10 Total Bilirubin 0.50 mg/dL (0.1-1.2) 08/07/19 09:47 Direct Bilirubin < 0.2 mg/dL (0-0.2) 08/07/19 09:47 AST 18 units/L (5-40) 08/07/19 09:47 ALT 14 units/L (7-56) 08/07/19 09:47 Alkaline Phosphatase 68 units/L (35-129) 08/07/19 09:47 Total Creatine Kinase 23 units/L (30-135) L 08/07/19 09:47 CK-MB (CK-2) 1.7 ng/mL (0.0-4.0) 08/07/19 09:47 CK-MB (CK-2) Rel Index 7.3 (0-4) H 08/07/19 09:47 Troponin T 0.027 ng/mL (0.00-0.029) 08/07/19 09:10 Total Protein 6.9 g/dL (6.3-8.2) 08/07/19 09:47 Albumin 2.8 g/dL (3.9-5) L 08/07/19 09:47 Albumin/Globulin Ratio 0.7 % 08/07/19 09:47 Urine Color Yellow (Yellow) 08/07/19 11:14 Urine Turbidity Cloudy (Clear) 08/07/19 11:14 Urine pH 5.0 (5.0-7.0) 08/07/19 11:14 Ur Specific [place] 1.011 (1.003-1.030) 08/07/19 11:14 Urine Protein <15 mg/dl mg/dL (Negative) 08/07/19 11:14 Urine Glucose (UA) 50 mg/dL (Negative) 08/07/19 11:14 Urine Ketones Neg mg/dL (Negative) 08/07/19 11:14 Urine Blood Mod (Negative) 08/07/19 11:14 Urine Nitrite Neg (Negative) 08/07/19 11:14 Urine Bilirubin Neg (Negative) 08/07/19 11:14 Urine Urobilinogen < 2.0 mg/dL (<2.0) 08/07/19 11:14 Ur Leukocyte Esterase Lg (Negative) 08/07/19 11:14 Urine WBC (Auto) 22.0 /HPF (0.0-6.0) H 08/07/19 11:14 Urine RBC (Auto) 26.0 /HPF (0.0-6.0) 08/07/19 11:14 U Epithel Cells (Auto) 7.0 /HPF (0-13.0) 08/07/19 11:14 Urine Bacteria (Auto) 2+ /HPF (Negative) 08/07/19 11:14 Uric Acid Crystals 2+ 08/07/19 11:14 Urine Mucus Few /HPF 08/07/19 11:14 Short CBC 08/07/19 Range/Units 09:10 WBC 4.4 L (4.5-11.0) K/mm3 Hgb 13.1 (10.1-14.3) gm/dl Hct 40.1 (30.3-42.9) % Plt Count 168 (140-440) K/mm3 BMP 08/07/19 09:10 Sodium 139 Potassium 4.1 Chloride 100.4 Carbon Dioxide 25 BUN 16 Creatinine 0.8 Glucose 203 H Calcium 9.6 Cardiac Enzymes 08/07/19 08/07/19 Range/Units 09:10 09:47 Total Creatine Kinase 23 L (30-135) units/L CK-MB (CK-2) 1.7 (0.0-4.0) ng/mL Troponin T 0.027 (0.00-0.029) ng/mL Liver Function 08/07/19 Range/Units 09:47 Total Bilirubin 0.50 (0.1-1.2) mg/dL Direct Bilirubin < 0.2 (0-0.2) mg/dL AST 18 (5-40) units/L ALT 14 (7-56) units/L Alkaline Phosphatase 68 (35-129) units/L Albumin 2.8 L (3.9-5) g/dL Urine 08/07/19 Range/Units 11:14 Urine Color Yellow (Yellow) Urine pH 5.0 (5.0-7.0) Ur Specific [place] 1.011 (1.003-1.030) Urine Protein <15 mg/dl (Negative) mg/dL Urine Glucose (UA) 50 (Negative) mg/dL Assessment and Plan Advance Directives: Yes (Full code) VTE prophylaxis?: Chemical Plan of care discussed with patient/family: Yes - Patient Problems (1) Acute encephalopathy Current Visit: Yes Status: Acute Plan to address problem: Lasted for a few hours Etiology unclear Rule out cerebrovascular accident Stroke work-up We will get MRI and carotid duplex scan and echocardiogram (2) Severe disability Current Visit: Yes Status: Acute (3) Physical debility Current Visit: Yes Status: Acute Plan to address problem: Patient unable to walk for the last 1 month. Patient is mostly bedridden. Patient is obese. 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
[2019-08-07] MEDS ORDERED: HYDROcodone/ACETAMINOPHEN 7.5-325MG TAB PO PRN (23:53)
[2019-08-07] MEDS ORDERED: ACETAMINOPHEN 325 MG TAB PO PRN (23:54)
[2019-08-07] MEDS ORDERED: oxyCODONE /ACETAMINOPHEN 5-325MG TAB PO PRN (23:54)
[2019-08-07] MEDS ORDERED: HYDROmorphone 1 MG/1 ML INJ IV PRN (23:54)
[2019-08-07] MEDS ORDERED: ONDANSETRON 4 MG/2 ML INJ IV PRN (23:54)
[2019-08-08 06:22] LABS: Alanine Aminotransferase 13 units/L (7-56); Albumin 2.7 g/dL (3.9-5); BUN/Creatinine Ratio 14; Blood Urea Nitrogen 11 mg/dL (7-17); Calcium 8.9 mg/dL (8.4-10.2); Hemolysis Index 13
[2019-08-08] MEDS ORDERED: glipiZIDE 10 MG TAB PO SCH (08:00)
--- NOTE | 2019-08-08 09:44 | Consultation ---
History of Present Illness - Reason for Consult Consult date: 08/08/19 Requesting physician: KALYAN CALI - History of Present Illness I was asked to consult on this 74-year-old female who is right-handed dominant who came in for altered mental status. From talking with her daughter, reviewing the notes and talking with the patient it appears that she has been bedbound for approximately the last 30 days. Prior to that she was doing some stand pivot transfers as well as taking some steps utilizing her wheelchair for support. Patient apparently had a bad experience with a shelter facility in the past and was hoping to go home with home health. Physical therapy evaluation has been ordered but has not been completed as of yet. Apparently after arrival into the ED the patient started to clear from her altered mental status and was able to answer questions correctly. She does have a stroke history in 2009 and has some residual left hemiparesis which is difficult to ascertain due to generalized weakness. Stroke work-up did not reveal an acute infarct. She states that it is been approximately 5 days since she has had a bowel movement. I did discuss with her and her daughter that at this point she appears to be more appropriate for a shelter facility environment. That may change after physical therapy evaluates her and possibly an occupational therapy evaluation as well. I will place the occupational therapy evaluation. At this point I do not think that she could tolerate the intensive level of therapy that would be required for her to be admitted into the IRU. Past History Past Medical History: diabetes (Poorly controlled), hypertension, stroke, other (Morbid obesity) Past Surgical History: hysterectomy (Partial) Social history: lives with family. denies: smoking, alcohol abuse Family history: no significant family history Medications and Allergies Allergies Allergy/AdvReac Type Severity Reaction Status Date / Time potassium chloride AdvReac Rash Verified 08/07/19 08:58 [From K-Dur] Home Medications Medication Instructions Recorded Confirmed Last Taken Type HYDROcodone/APAP 7.5-325 [[place] 1 each PO BID PRN 08/07/19 08/07/19 Unknown History 7.5/325] Metoprolol [Lopressor TAB] 50 mg PO QDAY 08/07/19 08/07/19 Unknown History glipiZIDE XL [Glucotrol Xl] 10 mg PO BID 08/07/19 08/07/19 Unknown History glipiZIDE [Glucotrol] 10 mg PO BID 08/07/19 08/07/19 Unknown History Active Meds: Active Medications Acetaminophen (Tylenol) 650 mg PO Q4H PRN PRN Reason: Pain MILD(1-3)/Fever >100.5/[place] Acetaminophen/Hydrocodone Bitart ([place] 7.5/325) 1 each PO BID PRN PRN Reason: PAIN (4-6) Famotidine (Pepcid) 20 mg PO BID [facility] Last Admin: 08/08/19 09:08 Dose: 20 mg Documented by: Glipizide (Glucotrol) 10 mg PO BIDDIAB [facility] Last Admin: 08/08/19 09:08 Dose: 10 mg Documented by: Hydromorphone HCl (Dilaudid) 0.5 mg IV Q3H PRN PRN Reason: Pain , Severe (7-10) Ceftriaxone Sodium (Rocephin/Ns 1 Gm/50 Ml) 1 gm in 50 mls @ 100 mls/hr IV Q24HR [facility]; Protocol Metoprolol Tartrate (Metoprolol) 50 mg PO QDAY [facility] Last Admin: 08/08/19 09:08 Dose: 50 mg Documented by: Ondansetron HCl (Zofran) 4 mg IV Q8H PRN PRN Reason: Nausea And Vomiting Oxycodone/Acetaminophen (Percocet 5/325) 1 tab PO Q6H PRN PRN Reason: Pain, Moderate (4-6) Sodium Chloride (Sodium Chloride Flush Syringe 10 Ml) 10 ml IV BID [facility] Last Admin: 08/08/19 09:09 Dose: 10 ml Documented by: Sodium Chloride (Sodium Chloride Flush Syringe 10 Ml) 10 ml IV PRN PRN PRN Reason: LINE FLUSH Review of Systems All systems: negative (ROS negative for 12 systems except as noted below with pertinent positives and negatives.) Ears, nose, mouth and throat: no decreased hearing Cardiovascular: high blood pressure, decreased exercise tolerance, no chest pain, no rapid/irregular heart beat Respiratory: no cough Gastrointestinal: constipation, no abdominal pain, no nausea, no vomiting Musculoskeletal: limitation of motion, gait dysfunction Integumentary: dryness, no sores Neurological: weakness, numbness, other (Left eye lateral deviation) Exam - Exam Narrative exam: MUSCULOSKELETAL SPECIALTY EXAM CONSTITUTIONAL: Well developed, well nourished, appropriately groomed, obese, [id number] LYMPHATIC: No appreciable abnormalities palpable in neck RESPIRATORY: Clear to auscultation bilaterally, distant breath sounds, no increased work of breathing CARDIOVASCULAR: Regular Rate/ Rhythm, slight swelling bilateral lower extremities, no breanna edema or tenderness in BUE or BLE. Pulses palpable in all extremities. All extremities warm. GI: + bowel sounds, soft, NTTP, nondistended. INTEGUMENTARY: Slight discoloration of bilateral lower extremities at the shins, dry skin diffusely, otherwise no lesion, rash, masses or bruising noted in extremities. MUSCULOSKELETAL: BUE and BLE normal without defect, crepitus, subluxation, effusion, arthritic changes or TTP. BUE 3/5, decreased ROM, pROM ok, with normal tone. BLE 2/5, decreased ROM, pROM ok, with normal tone NEURO: CN 2-12 grossly intact except for lateral gaze of left eye. Sensation intact in all extremities with some neuropathy in the bilateral lower extremities. Reflexes 2+ bilaterally at biceps, brachioradialis and 1+ patella. No clonus at ankles. Coordination fair but limited by range of motion and strength in BUE. No tremor noted in 4 extremities. POSTURE and GAIT: Posture, balance, and gait deferred until seen with therapy. PSYCH: Alert, oriented x3, affect appears flattened. Insight appears intact. - Constitutional Vitals: Vital Signs - 12hr 08/07/19 08/08/19 08/08/19 22:19 00:23 04:46 Temperature 99.0 F 98.0 F Pulse Rate 66 73 Respiratory 16 18 Rate Blood Pressure 123/54 128/63 O2 Sat by Pulse 97 96 95 Oximetry 08/08/19 08/08/19 09:08 09:11 Temperature 98.1 F Pulse Rate 77 74 Respiratory 18 Rate Blood Pressure 125/59 O2 Sat by Pulse 96 Oximetry - Labs CBC & Chem 7: 08/07/19 09:10 08/08/19 04:43 Labs: Laboratory Results - last 72 hr 08/07/19 08/07/19 08/07/19 09:10 09:10 09:10 WBC 4.4 L RBC 4.52 Hgb 13.1 Hct 40.1 MCV 89 MCH 29 MCHC 33 RDW 15.4 H Plt Count 168 Lymph % (Auto) 25.5 [place] % (Auto) 7.2 Eos % (Auto) 4.4 H Baso % (Auto) 0.5 Lymph # 1.1 L [place] # 0.3 Eos # 0.2 Baso # 0.0 Seg Neutrophils % 62.4 Seg Neutrophils # 2.8 PT 12.8 INR 0.95 APTT 25.8 Thrombin Time Sodium 139 Potassium 4.1 Chloride 100.4 Carbon Dioxide 25 Anion Gap 18 BUN 16 Creatinine 0.8 Estimated GFR > 60 BUN/Creatinine Ratio 20 Glucose 203 H POC Glucose Hemoglobin A1c Lactic Acid Calcium 9.6 Total Bilirubin Direct Bilirubin AST ALT Alkaline Phosphatase Total Creatine Kinase CK-MB (CK-2) CK-MB (CK-2) Rel Index Troponin T 0.027 Total Protein Albumin Albumin/Globulin Ratio Urine Color Urine Turbidity Urine pH Ur Specific [place] Urine Protein Urine Glucose (UA) Urine Ketones Urine Blood Urine Nitrite Urine Bilirubin Urine Urobilinogen Ur Leukocyte Esterase Urine WBC (Auto) Urine RBC (Auto) U Epithel Cells (Auto) Urine Bacteria (Auto) Uric Acid Crystals Urine Mucus 08/07/19 08/07/19 08/07/19 09:10 09:36 09:47 WBC RBC Hgb Hct MCV MCH MCHC RDW Plt Count Lymph % (Auto) [place] % (Auto) Eos % (Auto) Baso % (Auto) Lymph # [place] # Eos # Baso # Seg Neutrophils % Seg Neutrophils # PT INR APTT Thrombin Time 16.6 Sodium Potassium Chloride Carbon Dioxide Anion Gap BUN Creatinine Estimated GFR BUN/Creatinine Ratio Glucose POC Glucose 182 H Hemoglobin A1c Lactic Acid Calcium Total Bilirubin 0.50 Direct Bilirubin < 0.2 AST 18 ALT 14 Alkaline Phosphatase 68 Total Creatine Kinase CK-MB (CK-2) CK-MB (CK-2) Rel Index Troponin T Total Protein 6.9 Albumin 2.8 L Albumin/Globulin Ratio 0.7 Urine Color Urine Turbidity Urine pH Ur Specific [place] Urine Protein Urine Glucose (UA) Urine Ketones Urine Blood Urine Nitrite Urine Bilirubin Urine Urobilinogen Ur Leukocyte Esterase Urine WBC (Auto) Urine RBC (Auto) U Epithel Cells (Auto) Urine Bacteria (Auto) Uric Acid Crystals Urine Mucus 08/07/19 08/07/19 08/07/19 09:47 09:47 11:14 WBC RBC Hgb Hct MCV MCH MCHC RDW Plt Count Lymph % (Auto) [place] % (Auto) Eos % (Auto) Baso % (Auto) Lymph # [place] # Eos # Baso # Seg Neutrophils % Seg Neutrophils # PT INR APTT Thrombin Time Sodium Potassium Chloride Carbon Dioxide Anion Gap BUN Creatinine Estimated GFR BUN/Creatinine Ratio Glucose POC Glucose Hemoglobin A1c Lactic Acid 1.20 Calcium Total Bilirubin Direct Bilirubin AST ALT Alkaline Phosphatase Total Creatine Kinase 23 L CK-MB (CK-2) 1.7 CK-MB (CK-2) Rel Index 7.3 H Troponin T Total Protein Albumin Albumin/Globulin Ratio Urine Color Yellow Urine Turbidity Cloudy Urine pH 5.0 Ur Specific [place] 1.011 Urine Protein <15 mg/dl Urine Glucose (UA) 50 Urine Ketones Neg Urine Blood Mod Urine Nitrite Neg Urine Bilirubin Neg Urine Urobilinogen < 2.0 Ur Leukocyte Esterase Lg Urine WBC (Auto) 22.0 H Urine RBC (Auto) 26.0 U Epithel Cells (Auto) 7.0 Urine Bacteria (Auto) 2+ Uric Acid Crystals 2+ Urine Mucus Few 08/07/19 08/08/19 08/08/19 21:06 04:43 04:43 WBC RBC Hgb Hct MCV MCH MCHC RDW Plt Count Lymph % (Auto) [place] % (Auto) Eos % (Auto) Baso % (Auto) Lymph # [place] # Eos # Baso # Seg Neutrophils % Seg Neutrophils # PT INR APTT Thrombin Time Sodium 142 Potassium 3.7 Chloride 103.2 Carbon Dioxide 26 Anion Gap 17 BUN 11 Creatinine 0.8 Estimated GFR > 60 BUN/Creatinine Ratio 14 Glucose 115 H POC Glucose 169 H Hemoglobin A1c 10.0 H Lactic Acid Calcium 8.9 Total Bilirubin 0.40 Direct Bilirubin AST 18 ALT 13 Alkaline Phosphatase 65 Total Creatine Kinase CK-MB (CK-2) CK-MB (CK-2) Rel Index Troponin T Total Protein 6.5 Albumin 2.7 L Albumin/Globulin Ratio 0.7 Urine Color Urine Turbidity Urine pH Ur Specific [place] Urine Protein Urine Glucose (UA) Urine Ketones Urine Blood Urine Nitrite Urine Bilirubin Urine Urobilinogen Ur Leukocyte Esterase Urine WBC (Auto) Urine RBC (Auto) U Epithel Cells (Auto) Urine Bacteria (Auto) Uric Acid Crystals Urine Mucus 08/08/19 09:03 WBC RBC Hgb Hct MCV MCH MCHC RDW Plt Count Lymph % (Auto) [place] % (Auto) Eos % (Auto) Baso % (Auto) Lymph # [place] # Eos # Baso # Seg Neutrophils % Seg Neutrophils # PT INR APTT Thrombin Time Sodium Potassium Chloride Carbon Dioxide Anion Gap BUN Creatinine Estimated GFR BUN/Creatinine Ratio Glucose POC Glucose 140 H Hemoglobin A1c Lactic Acid Calcium Total Bilirubin Direct Bilirubin AST ALT Alkaline Phosphatase Total Creatine Kinase CK-MB (CK-2) CK-MB (CK-2) Rel Index Troponin T Total Protein Albumin Albumin/Globulin Ratio Urine Color Urine Turbidity Urine pH Ur Specific [place] Urine Protein Urine Glucose (UA) Urine Ketones Urine Blood Urine Nitrite Urine Bilirubin Urine Urobilinogen Ur Leukocyte Esterase Urine WBC (Auto) Urine RBC (Auto) U Epithel Cells (Auto) Urine Bacteria (Auto) Uric Acid Crystals Urine Mucus Assessment and Plan Patient was assessed and evaluated for Acute Inpatient Rehab Unit. Hypertension, diabetes, DVT prophylaxis per primary team ADL dysfunction: OT will work on improving ability to perform ADLs (including assistive devices) to increase independence and decrease caregiver burden and improve functional transfers and mobility training. Difficulty walking: PT will work on gait training and proper use of assistive devices and advance as appropriate to use of stairs and outside ambulation on uneven surfaces. Unsteadiness on feet: PT will work on improving static and dynamic sitting and standing balance as well as proper use of assistive devices to decrease risk of falls. Abnormality of gait: PT will work to improve safety and efficiency of gait through neuromotor training and gait training along with instruction on proper use of assistive devices. Muscle weakness: PT & OT will work on strengthening exercises to improve functional strength including mixture of closed and open kinetic chain exercises. Debility: PT & OT will work on improving overall functional status to improve participation with ADLs, mobility and social involvement. Fatigue: PT & OT will work on improving endurance through aerobic exercises and therapeutic activity while monitoring patients tolerance for activity and vital signs as needed. Pain: Continue physical modalities in therapy and pain medications as needed to achieve functional pain control. Sleep: Monitor and address as needed. Bowel: Constipated, will add prn as well as scheduled medications Appetite: Monitor and address as needed. Discharge planning: Pending therapy progress and care plan meeting. Most likely appropriate for shelter facility unless something changes while she is inpatient making her more appropriate for IRU. Restrictions/ Precautions: Falls WB status: FWB Thank you for the opportunity to consult on this patient. We will follow peripherally. If after therapy evaluations she appears more appropriate for IRU admission, I will reassess and update recommendations. Recommendations: may discharge to shelter facility when medically stable
[2019-08-08] MEDS ORDERED: METOPROLOL TARTRATE 50 MG TAB PO SCH (10:00)
[2019-08-08] MEDS ORDERED: cefTRIAXone/NS 1 GM/50 ML 1 GM/50 ML BAG IV SCH (10:00)
[2019-08-08] MEDS ORDERED: FAMOTIDINE 20 MG TAB PO SCH (10:00)
[2019-08-08] MEDS ORDERED: POLYETHYLENE GLYCOL 3350 17 GM POWDER PO SCH (10:00)
--- NOTE | 2019-08-08 15:10 | Discharge Summary ---
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 Primary care physician: FABIOLA FULTON MD Hospitalization Condition: Stable Disposition: [id number]/[place]-06 HOME UNDER HOME HL Time spent for discharge: 32 min Core Measure Documentation - Palliative Care Palliative Care/ Comfort Measures: Not Applicable - Core Measures Any of the following diagnoses?: none Exam - Constitutional Vitals: Temp Pulse Resp BP Pulse Ox 98.1 F 74 18 125/59 96 08/08/19 09:11 08/08/19 09:11 08/08/19 09:11 08/08/19 09:11 08/08/19 09:11 Plan Activity: advance as tolerated, fall precautions Diet: diabetic, other Special Instructions: physical therapy Additional Instructions: Home PT and OT, Fall precautions. advised to follow primary care physician within 1 week. Further evaluation of incidental finding of thyroid nodules outpatient per PMD Follow up with: PRIMARY CAREMD [Primary Care Provider] - 3-5 Days
[2019-08-08 17:26] VITALS: BP 127/51
== END 2019-08-08 18:45 | disposition home health service (06) ==
LOC: ED 08:52 → 4A 11:21
PROVIDERS: ADMIT Internal Medicine; ATTEND Internal Medicine
DX: G93.40 Encephalopathy, unspecified (principal); R53.81 Other malaise; I10 Essential (primary) hypertension; E11.9 Type 2 diabetes mellitus without complications; E66.01 Morbid (severe) obesity due to excess calories; N39.0 Urinary tract infection, site not specified; J44.9 Chronic obstructive pulmonary disease, unspecified; Z86.73 Personal history of transient ischemic attack (TIA), and cerebral infarction without residual deficits
CPT/HCPCS: 36415; 70450; 70496; 70498; 71045; 80048; 80053; 80076; 81001; 82140; 82550; 82553; 82962; 83036; 84484; 85025; 85610; 85670; 85730; 87040; 87086; 93005; 93010; 96361; 96365; 97162; 97530; 99285; G0378; J0696; J7030; Q9967